=== PATIENT | male | born 1985 | race Caucasian/White ===

== ENCOUNTER 2024-09-25 09:14 | Emergency (ER) | payer OTHER ==
[~2024-09-25] VITALS: Ht 175.3 cm; Wt 83.0 kg
[~2024-09-25 09:14] MED LIST: ALBU.083IS IH; ALBU3IS INH; ALBU90OI; ALBU90OI INH; AMOCLA875 PO; AMOX500 PO; AZIT500 PO; BUDE6HFA INH; BUDE6HFA NEB; CEPH500 PO; CIPR500 PO; CYCL10 PO; DOXY100 PO; DULERA 200 MCG/13 GM INH; HYDACE5 PO; HYDGUAL120 PO; IBUP800 PO; NAPR500 PO; NEBULIZER; PHENA200 PO; PRED10 PO; PRED20 PO; PRIMATINE; ROBITUSSIN DM PO; SPACER IH; Singulair10 MG PO; TRAM50 PO; Ventolin Soln3 ML INH
[2024-09-25] MEDS ORDERED: Ondansetron HCl 2 MG / ML 2ML Vial IV ONE ×2 (09:20→11:15)
[2024-09-25] MEDS ORDERED: NS 1,000 ML IV SCH (09:20)
[2024-09-25] MEDS ORDERED: Magnesium Sulf 2 GM/Water 50ML 50 ML IV ONE (09:20)
[2024-09-25 09:29] LABS: BASOPHILS PERCENT AUTO 1 % (0-2); EOSINOPHILS ABSOLUTE AUTO 0.52 K/mm3 (0.00-0.68); EOSINOPHILS PERCENT AUTO 6 % (0-6); Hematocrit 47.1 % (37.0-53.0); Hemoglobin 15.8 g/dL (13.5-17.5); IMMATURE GRAN ABSOLUTE AUTO 0.01 K/mm3 (0.00-0.10); IMMATURE GRAN PERCENT AUTO 0 % (0-1); LYMPHOCYTES ABSOLUTE AUTO 2.94 K/mm3 (0.84-5.20); LYMPHOCYTES PERCENT AUTO 32 % (21-46); MONOCYTES ABSOLUTE AUTO 0.82 K/mm3 (0.16-1.47); MONOCYTES PERCENT AUTO 9 % (4-13); Mean Corpuscular HGB 30.6 pg (26.0-34.0); Mean Corpuscular HGB Conc 33.5 g/dL (31.5-36.5); Mean Corpuscular Volume 91 fL (80-100); Mean Platelet Volume 9.6 fL (9.1-12.4); NEUTROPHILS ABSOLUTE AUTO 4.69 K/mm3 (1.96-9.15); NEUTROPHILS PERCENT AUTO 52 % (41-73); Platelet Count 309 K/mm3 (150-400); RDW Coefficient Variation 13.2 % (11.7-14.2); RDW Standard Deviation 44.9 fL (35.1-46.3); Red Blood Cell Count 5.17 M/mm3 (4.30-5.90); White Blood Cell Count 9.08 K/mm3 (4.00-11.30)
[2024-09-25] MEDS ORDERED: Albuterol 2.5 MG/3 ML VIAL INH SCH (09:30)
[2024-09-25 09:50] LABS: Albumin, Blood 4.5 g/dL (3.4-5.0); Albumin/Globulin Ratio 1.4 (0.8-1.8); Bilirubin, Total 0.5 mg/dL (0.1-1.0); Bun/Creatinine Ratio 15.3 (12.0-20.0); Calcium, Blood 9.3 mg/dL (8.5-10.1); Creatinine, Blood 0.78 mg/dL (0.60-1.20); Globulin, Blood 3.3 g/dL (2.2-4.0); Potassium, Blood 3.9 mmol/L (3.5-5.5); Total Protein, Blood 7.8 g/dL (6.4-8.2)
[2024-09-25] MEDS ORDERED: Ipratropium/Albuterol SulF 2.5-0.5MG/3 ML Amp INH ONE (11:10)
[2024-09-25 12:30] VITALS: BP 106/59
[2024-09-25] MEDS ORDERED: PRED20 PO (12:49)
== END 2024-09-25 13:10 | disposition home or self-care (01) ==
LOC: ER 09:14
PROVIDERS: Emergency Medicine
DX: J45.51 Severe persistent asthma with (acute) exacerbation (principal); J44.89 Other specified chronic obstructive pulmonary disease; F17.200 Nicotine dependence, unspecified, uncomplicated; Z79.899 Other long term (current) drug therapy
CPT/HCPCS: 71045; 80053; 85025; 93005; 93010; 94640; 94644; 94664; 96365; 96372; 96375; 96376; 99285-25; J2405; J2919; J3475; J7030

== ENCOUNTER 2024-09-25 14:34 | Emergency (ER) | payer OTHER ==
[~2024-09-25] VITALS: Ht 175.3 cm; Wt 82.5 kg
[2024-09-25 14:56] VITALS: BP 104/64
[2024-09-25] MEDS ORDERED: Ipratropium/Albuterol SulF 2.5-0.5MG/3 ML Amp INH ONE (15:20)
[2024-09-25] MEDS ORDERED: MethylPREDNISolone Sod Succ 125 MG Vial IM ONE (15:40)
== END 2024-09-25 15:49 | disposition home or self-care (01) ==
LOC: ER 14:34
DX: J45.901 Unspecified asthma with (acute) exacerbation (principal); J44.89 Other specified chronic obstructive pulmonary disease; Z79.899 Other long term (current) drug therapy; Z87.891 Personal history of nicotine dependence
CPT/HCPCS: 94640; 94664; J2919